=== PATIENT | female | born 1985 | race Caucasian/White ===

== ENCOUNTER 2022-04-28 15:59 | Emergency (ER) | payer OTHER ==
[~2022-04-28] VITALS: Ht 162.6 cm; Wt 59.0 kg
[2022-04-28] MEDS ORDERED: NAPROXEN250 MG PO (19:29)
== END 2022-04-28 20:45 | disposition home or self-care (01) ==
LOC: ER 17:06
DX: M25.572 Pain in left ankle and joints of left foot (principal); M25.552 Pain in left hip; M54.50 Low back pain, unspecified; Z98.890 Other specified postprocedural states
CPT/HCPCS: 72100; 81025